=== PATIENT | male | born 1980 | race Caucasian/White ===

== ENCOUNTER 2018-01-01 11:35 | Emergency (ER) | payer BC ==
[2018-01-01 11:42] VITALS: BP 140/97; PULSE 81; TEMP 98.1; BMI 26.9
--- NOTE | 2018-01-01 12:08 | PDOC ---
History of Present Illness - General Chief Complaint: Respiratory Stated Complaint: COUGH, SORE THROAT, ABD PAIN Time Seen by Provider: 01/01/18 11:53 History Source: Patient Past History - Past Medical History Allergies/Adverse Reactions: Allergies Allergy/AdvReac Type Severity Reaction Status Date / Time No Known Allergies Allergy Verified 01/01/18 11:38 Home Medications: Ambulatory Orders NK [No Known Home Medication] 01/01/18 Anemia: No Asthma: No Cancer: No Cardiac Disorders: No CVA: No COPD: No Dementia: No Diabetes: No Dialysis: No GI Disorders: Yes (ACID REFLUX) Disorders: No HTN: No Hypercholesterolemia: No Kidney Stones: No Liver Disease: No Seizures: No - Surgical History Abdominal Surgery: No Appendectomy: No Cardiac Surgery: No Cholecystectomy: No - Immunization History Td Vaccination: Yes TDAP Vaccination: Yes - Suicide/Smoking/Psychosocial Hx Smoking Status: Yes Smoking History: Current every day smoker Years of Tobacco Use: 15 Have you smoked in the past 12 months: Yes Number of Cigarettes Smoked Daily: 30 Information on smoking cessation initiated: Yes 'Breaking Loose' booklet given: 01/01/18 Hx Alcohol Use: (weekends) Drug/Substance Use Hx: No Substance Use Type: Alcohol, Cocaine, Marijuana Hx Substance Use Treatment: No *Physical Exam - Vital Signs Last Vital Signs Temp Pulse Resp BP Pulse Ox 98.1 F 81 18 140/97 97 01/01/18 11:35 01/01/18 11:35 01/01/18 11:35 01/01/18 11:35 01/01/18 11:35 *DC/Admit/Observation/Transfer Diagnosis at time of Disposition: Viral syndrome - Discharge Dispostion Disposition: HOME Condition at time of disposition: Stable Admit: No - Referrals - Patient Instructions Printed Discharge Instructions: DI for Viral Syndrome - Post Discharge Activity Forms/Work/School Notes: Back to Work
== END 2018-01-01 13:35 | disposition home or self-care (01) ==
LOC: FER 11:35
DX: B34.9 Viral infection, unspecified (principal); F17.210 Nicotine dependence, cigarettes, uncomplicated
CPT/HCPCS: 87070; 87430; 99284-25

== ENCOUNTER 2020-05-28 09:10 | Day surgery (SDC) | payer OTHER ==
[2020-05-26 16:56] VITALS: BMI 25.7
[~2020-05-28 09:10] MED LIST: LACTATED RINGERS SOLUTION 1,000 ML IV SCH; ONDANSETRON 4 MG/2 ML VIAL IVPUSH PRN
[2020-05-28] MEDS ORDERED: oxyCODONE HCL 5 MG TABLET PO ONE ×2 (10:42)
[2020-05-28] MEDS ORDERED: PROPOFOL 20 ML ONE (11:11)
[2020-05-28] MEDS ORDERED: ROCURONIUM BROMIDE 50 MG/5 ML SYRINGE ONE (11:47)
[2020-05-28] MEDS ORDERED: NEOSTIGMINE METHYLSULFATE 0.5 MG/ML - 10 ML MDV ONE (12:11)
[2020-05-28] MEDS ORDERED: BUPIVACAINE HCL/PF 0.25% (2.5MG/ML) 10 ML VIAL IJ ONE (12:15)
[2020-05-28] MEDS ORDERED: ONDANSETRON 4 MG/2 ML VIAL ONE (12:36)
[2020-05-28 13:40] VITALS: PULSE 75; TEMP 97.9
[2020-05-28 14:08] VITALS: BP 132/75
--- NOTE | 2020-05-28 15:15 | OP ---
DATE OF OPERATION: 05/28/2020 SURGEON: Tonio Nguyen MD GAS DESULFURIZER: DOREEN Bermudez PREOPERATIVE DIAGNOSIS: Right elbow distal biceps rupture/tear. POSTOPERATIVE DIAGNOSIS: Right elbow distal biceps rupture/tear. PROCEDURE: Insertion of distal biceps rupture/repair. FINDINGS: Avulsed biceps tendon with retraction to the biceps muscle. DESCRIPTION OF PROCEDURE: Informed consent was obtained. Patient taken to the operating room where the right upper extremity was prepped and draped in sterile fashion. Tourniquet was placed on the upper arm, inflated to 250 mmHg. Horizontal incision was made 4 cm distal to the elbow crease. This was taken down through the fascial layer, paying careful attention to avoid neurovasculature structures. The fascia was incise. An [place] was placed, looking superiorly, and the biceps tendon was found to be scarred into the biceps going into the local soft tissue. This was removed from tissue and debrided of all scar tissue. Two No. 1 FiberWires were placed with a [place] interlocking stitch, with attachments to the interlock device. The radial neck insertion site was identified. were placed around the radial neck, and a Whaley elevator was used to remove soft tissue. Using ToggleLoc device, a guidewire 5 x 7 mm, then a 4-mm drill were used; 7 mm was for the anterior cortex, 4 mm for the posterior cortex. Copious amounts of irrigation were performed through multiple layers. ToggleLocs were inserted through the posterior cortex to 90 degrees to have a locking position. was tied into the bleeding bone along the anterior cortex. This was secured into place. Wound was irrigated again. Tourniquet was released. There was no evidence of active bleeding. Layered closure of 2-0 Vicryl and 3-0 Prolene was performed. Sterile dressing was placed. Patient was taken to recovery room without complication. A splint was placed as well. The PA listed above was present and assisted at surgery. Their presence was absolutely medically necessary for the completion of the procedure. They helped hold the arthroscopy, pass instruments (and implants when indicated) and the procedure could not have been completed without their assistance. TONIO NGUYEN M.D. [id number]
== END 2020-05-28 14:05 | disposition home or self-care (01) ==
LOC: FASU 09:10
PROVIDERS: ATTEND Orthopaedic Surgery
PROC: 0LM30ZZ Reattachment of Right Upper Arm Tendon, Open Approach (ICD-10-PCS; principal; 2020-05-28 11:26)
DX: M66.821 Spontaneous rupture of other tendons, right upper arm (principal)
CPT/HCPCS: 94760

== ENCOUNTER 2024-09-10 07:41 | Emergency (ER) | payer SELFPAY ==
[2024-09-10 08:03] VITALS: BP 119/81; PULSE 78; RESP 18; TEMP 98.1; BMI 25.5
[2024-09-10] MEDS ORDERED: chlordiazePOXIDE HCL 25 MG CAPSULE ONE (08:09)
[2024-09-10] MEDS: chlordiazePOXIDE HCL 25 MG CAPSULE PO ONE (08:14)
== END 2024-09-10 08:42 | disposition home or self-care (01) ==
LOC: JER 07:41
DX: S00.81XA Abrasion of other part of head, initial encounter (principal); S40.811A Abrasion of right upper arm, initial encounter; S40.812A Abrasion of left upper arm, initial encounter; S80.811A Abrasion, right lower leg, initial encounter; S80.812A Abrasion, left lower leg, initial encounter; M25.552 Pain in left hip; R53.1 Weakness; R11.10 Vomiting, unspecified; R19.7 Diarrhea, unspecified; R25.1 Tremor, unspecified; F10.930 Alcohol use, unspecified with withdrawal, uncomplicated; W17.89XA Other fall from one level to another, initial encounter
CPT/HCPCS: 72170-TC-FY; 73502-TC-LT-FY; 99284-25